=== PATIENT | female | born 1940 | race Caucasian/White ===

== ENCOUNTER 2019-09-08 05:36 | Observation (INO) | payer MEDICARE ==
[~2019-09-08] VITALS: Ht 160 cm; Wt 67.1 kg
[~2019-09-08 05:36] MED LIST: Cyclobenzaprine5 MG PO; FLUT.05NI; LEVSOD100 PO; LEVSOD50 PO; LORA1 PO; Norco 5-325 Ta1 EACH PO; THYROID MED
[2019-09-08] MEDS ORDERED: LEVSOD50 PO (05:46)
[2019-09-08] MEDS ORDERED: LEVSOD75 PO (05:46)
[2019-09-08 06:16] LABS: BASOPHILS ABSOLUTE AUTO 0.03 K/mm3 (0.00-0.23); BASOPHILS PERCENT AUTO 1 % (0-2); EOSINOPHILS ABSOLUTE AUTO 0.13 K/mm3 (0.00-0.68); EOSINOPHILS PERCENT AUTO 3 % (0-6); Hematocrit 41.8 % (33.0-51.0); Hemoglobin 13.3 g/dL (11.5-16.0); IMMATURE GRAN ABSOLUTE AUTO 0.01 K/mm3 (0.00-0.10); IMMATURE GRAN PERCENT AUTO 0 % (0-1); LYMPHOCYTES PERCENT AUTO 43 % (21-46); MONOCYTES ABSOLUTE AUTO 0.72 K/mm3 (0.16-1.47); MONOCYTES PERCENT AUTO 16 % (4-13); Mean Corpuscular HGB 30.4 pg (26.0-34.0); Mean Corpuscular HGB Conc 31.8 g/dL (31.5-36.5); Mean Corpuscular Volume 96 fL (80-100); Mean Platelet Volume 9.2 fL (9.1-12.4); NEUTROPHILS ABSOLUTE AUTO 1.72 K/mm3 (1.96-9.15); NEUTROPHILS PERCENT AUTO 37 % (41-73); Platelet Count 170 K/mm3 (150-400); RDW Coefficient Variation 12.6 % (11.7-14.2); RDW Standard Deviation 44.5 fL (35.1-46.3); Red Blood Cell Count 4.37 M/mm3 (3.80-5.20); White Blood Cell Count 4.61 K/mm3 (4.00-11.30)
[2019-09-08 06:23] LABS: Alanine Aminotransfer (ALT/SGP 17 U/L (12-78); Albumin, Blood 3.5 g/dL (3.4-5.0); Albumin/Globulin Ratio 1.1 (0.8-1.8); Alk Phos 88 U/L (50-136); Anion Gap 5 mmol/L (6-16); Aspartate Aminotrans (AST/SGOT 21 U/L (12-37); Bilirubin, Total 0.5 mg/dL (0.1-1.0); Blood Urea Nitrogen 13 mg/dL (8-24); Bun/Creatinine Ratio 15.3 (12.0-20.0); CO2, Blood 27 mmol/L (21-32); Chloride, Blood 111 mmol/L (98-108); Creatinine, Blood 0.85 mg/dL (0.40-1.00); Globulin, Blood 3.1 g/dL (2.2-4.0); Glomerular Filtration Rate >60 (60-); Glucose, Blood 99 mg/dL (70-99); Potassium, Blood 3.7 mmol/L (3.5-5.5); Sodium, Blood 143 mmol/L (136-145); Total Protein, Blood 6.6 g/dL (6.4-8.2)
[2019-09-08 07:38] LABS: Source, Urine Clean Catch
[2019-09-08 07:42] LABS: Bilirubin, Urine Neg (Neg); Blood, Urine Neg (Neg); Glucose Qualitative, Urine Neg (Neg); Ketones, Urine Neg (Neg); Leukocyte Esterase, Urine Neg (Neg); Nitrite, Urine Neg (Neg); Protein, Urine Neg (Neg); Specific Gravity, Urine 1.005 (1.003-1.022); Urobilinogen, Urine NORM (Normal)
[2019-09-08 07:49] LABS: Appearance, Urine Clear (Clear); Color, Urine No Color (P-Yellow)
--- NOTE | 2019-09-08 10:28 | NUR ---
Assumed care of patient Patient transferred from ER to room 343, received report from PK Aden. Pt arrived to unit via wheelchair and transferred self over. A/Ox4, SBA to bathroom, oriented to room and call light. Pt settled in bed. Call light near, bed in lowest position. Will continue to monitor.
[2019-09-08] MEDS ORDERED: LORA.5 PO (11:20)
[2019-09-08] MEDS ORDERED: LORAZEPAM0.5 MG (11:20)
--- NOTE | 2019-09-08 12:34 | NUR ---
Echocardiogram completed.
--- NOTE | 2019-09-08 17:17 | NUR ---
Shift Summary A/Ox3. Pleasant and cooperative with care. Pt continues to void and call appropriately for needs. No acute changes.
--- NOTE | 2019-09-09 04:08 | NUR ---
SHIFT SUMMARY PT HAS RESTED FOR MOST OF THE NIGHT. NEURO ASSESSMENT WNL, PT DENIES STROKE SYMPTOMS. VITALS HAVE BEEN STABLE. PT HAS BEEN AMBUALATING TO THE BATHROOM WITHOUT DIFFICULTY. NO ACUTE CHANGES. POSSIBLE DC TODAY. BED IN LOWEST POSITION, CALL LIGHT WITHIN REACH. WILL CONTINUE TO MONITOR AND REPORT TO ONCOMING RN.
--- NOTE | 2019-09-09 15:26 | NUR ---
SHIFT SUMMARY PT AWAKE DURING SHIFT REPORT. UP INDEPENDENTLY TO [facility]. NO C/O. ADMITTED FOR TIA'S WITH S/SX'S RESOLVED PRIOR TO ADMIT. DR OCONNOR IN TO SEE PT. D/C ORDERS PLACED. IV SITE AND TELE MX D/C'D. PT'S FAMILY HERE TO TAKE PT HOME. PT LEFT VIA W/C WITH CONI WHITTINGTON.
== END 2019-09-09 13:03 | disposition home or self-care (01) ==
LOC: ER 05:36 → MEDS 05:37 → ENPENDDIS 09-09 11:46 → MEDS 09-09 13:03
PROVIDERS: Emergency Medicine; ADMIT Internal Medicine
DX: G45.9 Transient cerebral ischemic attack, unspecified (principal); I10 Essential (primary) hypertension; E03.9 Hypothyroidism, unspecified; K21.9 Gastro-esophageal reflux disease without esophagitis; F41.1 Generalized anxiety disorder; Z88.2 Allergy status to sulfonamides; Z88.0 Allergy status to penicillin; Z88.1 Allergy status to other antibiotic agents; Z79.899 Other long term (current) drug therapy
CPT/HCPCS: 70450; 70551; 71046; 80053; 81003; 85025; 93005; 93010; 93306; 93880; 96374; 99285-25; G0378; J0360

== ENCOUNTER → 2021-09-15 | Outpatient (CLI) | payer OTHER ==
[~2021-09-15] MED LIST changes: +LEVSOD75 PO; +LORA.5 PO; +LORAZEPAM0.5 MG
== END | disposition home or self-care (01) ==
LOC: LAB SHORT 12:45
DX: C44.311 Basal cell carcinoma of skin of nose (principal)
CPT/HCPCS: 88305